=== PATIENT | male | born 1955 | race Caucasian/White ===

== ENCOUNTER 2017-01-14 17:23 | Emergency (ER) | payer OTHER ==
[2017-01-14 19:05] LABS: ABSOLUTE BASOPHIL COUNT 0 /CUMM (0.0-0.2); ABSOLUTE EOSINOPHIL COUNT 0.3 /CUMM (0.0-0.7); ABSOLUTE GRANULOCYTE CT 5.1 /CUMM (1.4-6.5); ABSOLUTE LYMPH COUNT 1.3 /CUMM (1.2-3.4); ABSOLUTE MONOCYTE COUNT 0.5 /CUMM (0.10-0.60); BASOPHIL % 0.3 % (0.0-2.0); EOSINOPHIL % 4.6 % (0-5); GRANULOCYTE % 70.3 % (42.2-75.2); HEMATOCRIT 43.6 % (42-52); MEAN CORPUSCULAR HGB 30.5 PG (27.0-31.0); MEAN CORPUSCULAR HGB CONC 33.5 G/DL (33.0-37.0); MEAN CORPUSCULAR VOLUME 91.2 FL (80.0-94.0); MEAN PLATELET VOLUME 7.1 FL (7.4-10.4); PLATELET COUNT 234 /CUMM (130-400); RBC DISTRIBUTION WIDTH 12.8 % (11.5-14.5); RED BLOOD CELL CT 4.78 /CUMM (4.70-6.10); WHITE BLOOD CELL COUNT 7.2 /CUMM (4.8-10.8)
[2017-01-14] MEDS ORDERED: CENTRUM SILVER1 EAC4 PO (19:12)
[2017-01-14] MEDS ORDERED: LISINOPRIL-HCT1 EACH PO (19:12)
[2017-01-14] MEDS ORDERED: VITAMIN C1000 M2 PO (19:13)
[2017-01-14] MEDS ORDERED: ASPIRIN325 M2 PO (19:13)
[2017-01-14 19:16] LABS: PT 11.2 SEC (9.4-12.5); PTT 32 SEC (25-37)
[2017-01-14 19:35] VITALS: BP 131/64
--- NOTE | 2017-01-14 20:04 | ED UPPER/LOWER EXTREMITY COMPL ---
History of Present Illness General Chief Complaint: Lower Extremity Problems Stated Complaint: LEFT LEG PAINFULL AND SWOLLEN, 5 DAYS Source: patient, family Exam Limitations: no limitations Vital Signs & Intake/Output Vital Signs & Intake/Output Vital Signs Date Time Temp Pulse Resp B/P Pulse O2 O2 Flow FiO2 Ox Delivery Rate 01/14 1935 96.4 81 18 131/64 96 Room Air 01/14 1735 97.6 94 20 143/86 96 ED Intake and Output 01/15 0000 01/14 1200 Intake Total Output Total Balance Patient 271 lb Weight Allergies Coded Allergies: No Known Allergies (01/14/17) Reconcile Medications Ascorbic Acid (Vitamin C) 1,000 MG TAB.CHEW 1 TAB PO DAILY SUPPLEMENT ( Reported) Aspirin (Aspirin*) 325 MG TABLET 2 TAB PO ONCE HEADACHE (Reported) Lisinopril/Hydrochlorothiazide (Lisinopril-Hctz 20-12.5 MG Tab) 20 MG-12.5 MG TABLET 1 TAB PO DAILY BP (Reported) Multivit-Min/FA/Lycopen/Lutein (Centrum Silver Men Tablet) 300 MCG-600 MCG-300 MCG TABLET 1 TAB PO DAILY SUPPLEMENT (Reported) Triage Note: PER PT L LEG SIGNIFICANTLY MORE SWOLLEN THEN R. DENIES TRAUMA, NOTICED A LITTLE BIT ON MONDAY BUT TODAY MORE NOTICABLE, RECENT DX WITH NOHODGKINS LYMPHOMA, UNABLE TO EVAL IN TRIAGE Triage Nurses Notes Reviewed? yes Onset: Abrupt Duration: day(s): (3), constant Timing: recent history Severity: moderate, severe No Modifying Factors: none HPI: 61-year-old male comes into emergency room for further evaluation of left leg pain and swelling has been going on since the past 3 days. Patient reports back in October he was diagnosed with non-Hodgkin's lymphoma. Patient reports some swelling and pain to the left lower leg. Denies any chest pain or shortness of breath. Denies any trauma to the area. Denies any fever chills or flulike symptoms. Patient reports that nothing seems to make the symptoms better or worse. Denies any prior history of this before. Denies any prior history of blood clots before. (DANO BARBER) Past History Travel History Traveled to [place] past 21 day No Medical History Any Pertinent Medical History? see below for history Neurological: NONE EENT: NONE Cardiovascular: hypertension Respiratory: NONE Gastrointestinal: NONE Hepatic: NONE Renal: NONE Musculoskeletal: NONE Psychiatric: NONE Endocrine: NONE Cancer(s): NOHODGKINS LYMPHOMA Surgical History Surgical History: non-contributory Psychosocial History What is your primary language Upper Sorbian Tobacco Use: Current Daily Use Daily Tobacco Use Amount/Type: => 5 Cigarettes daily Family History Hx Contributory? No (DANO BARBER) Review of Systems Review of Systems Constitutional: Reports: no symptoms. EENTM: Reports: no symptoms. Respiratory: Reports: no symptoms. Cardiovascular: Reports: no symptoms. Gastrointestinal/Abdominal: Reports: no symptoms. Genitourinary: Reports: no symptoms. Musculoskeletal: Reports: see HPI. Skin: Reports: see HPI. Neurological/Psychological: Reports: no symptoms. Hematologic/Endocrine: Reports: no symptoms. Immunological: Reports: no symptoms. All Other Systems: Reviewed and Negative (DANO BARBER) Physical Exam Physical Exam General Appearance: well developed/nourished, mild distress Head: atraumatic Eyes: Bilateral: normal appearance. Ears, Nose, Throat: normal ENT inspection, hearing grossly normal Neck: normal inspection Cardiovascular/Respiratory: regular rate/rhythm, no respiratory distress Back: normal inspection Leg Left: swelling, tenderness, mild warmth, no demarcated borders, some mild erythema to the leg (,) Neurologic/Tendon: normal sensation, normal motor functions, normal tendon functions, responds to pain, no evidence tendon injury, no pulse deficit Skin: intact, normal color, warm/dry Lymphatic: no anterior cervical ellen (DANO BARBER) Progress Differential Diagnosis: arterial insufficiency, cellulitis, CHF, compartment syndrome, contusion, dislocation, DVT, septic arthritis, sprain Plan of Care: Orders Procedure Date/time Status PARTIAL THROMBOPLASTIN TIME 01/15 1828 Complete PROTHROMBIN TIME 01/15 1828 Complete CBC WITHOUT DIFFERENTIAL 01/15 1828 Complete BASIC METABOLIC PANEL 01/15 1828 Complete Laboratory Tests 01/14/171857: Anion Gap 10, Estimated GFR > 60, BUN/Creatinine Ratio 26.7 H, Glucose 84, Calcium 9.7, PT 11.2, INR 1.07, APTT 32, CBC w Diff NO MAN DIFF REQ, RBC 4.78, MCV 91.2, MCH 30.5, RDW 12.8, MPV 7.1 L, Gran % 70.3, Lymphocytes % 17.7 L, Monocytes % 7.1, Eosinophils % 4.6, Basophils % 0.3, Absolute Granulocytes 5.1, Absolute Lymphocytes 1.3, Absolute Monocytes 0.5, Absolute Eosinophils 0.3, Absolute Basophils 0, PUBS MCHC 33.5 Comments: 01/14/2017 8:30:37 PM bedside ustrasound scan was performed of left lower extremity by mauricio STARK. There was no signs of dvt. This was not an official ultrasound read therefore it was determined that the patient will be anticoagulated tonight with one dose of Lovenox and return tomorrow for a dedicated ultrasound. Patient was told to return at 8 AM. Patient has no cardiac or pulmonary symptoms. Patient is not hypotensive or tachycardic. He has no chest pain or shortness of breath. Due to clinical signs of DVT patient was anticoagulated. Declined rectal exam. No prior history of internal bleeding. Patient understands that he must return tomorrow at 8 AM to have official ultrasound done. Patient agrees with plan of care. Case discussed with Dr. Aguilar. (CLARIBEL RAMIREZ,CASTAIC) Departure Departure Disposition: HOME OR SELF CARE Condition: Stable Clinical Impression Primary Impression: Left leg swelling Referrals: MAYKEL STARK,CHRISTINA Rae (PCP/Family) Additional Instructions: Please return tomorrow morning at 8 AM for ultrasound of her left lower leg to rule out DVT. Return sooner if any chest pain shortness of breath or any other concerns worsening symptoms. It is possible that there could be a blood clot in her leg and you must return tomorrow for official ultrasound. Please go over all results of today's visit with your primary care doctor. Contact your primary care doctor to let them know you were here in the emergency room. There may be nonspecific findings which may not be related to your visit today here in the emergency room but may require further evaluation and chronic monitoring by your primary care doctor. If you had a laceration today the chance of foreign body always remains. You should follow-up with your primary care doctor for recheck in 3-5 days for a wound check. If you had an x-ray done there is a chance that a fracture could have been missed on initial read and you should follow-up with your primary care doctor for repeat x-rays if symptoms persist. If your blood pressure was elevated here in the emergency room please have rechecked by her primary care doctor within the next 48 hours by your primary care doctor. If you were prescribed a narcotic here in the emergency room or any type of controlled substances you're not allowed to drive while taking this medication or operate any type of heavy machinery. Narcotics can make you feel lightheaded dizziness nausea and can cause constipation. You may need to pickle water pump operator a stool softener. Thank you for choosing [facility] emergency room. Please return to the emergency room immediately if you have any other concerns worsening of symptoms. Departure Forms: Customer Survey General Discharge Information (DANO BARBER) PA/BANDER AND CELLOPHANER HELPER MACHINE Co-Sign Statement Statement: ED Attending supervision documentation- [] I saw and evaluated the patient. I have also reviewed all the pertinent lab results and diagnostic results. I agree with the findings and the plan of care as documented in the PA's/BANDER AND CELLOPHANER HELPER MACHINE's documentation. [x] I have reviewed the ED Record and agree with the PA's/BANDER AND CELLOPHANER HELPER MACHINE's documentation. [] Additions or exceptions (if any) to the PAs/BANDER AND CELLOPHANER HELPER MACHINE's note and plan are summarized below: [] (HUMAIRA STARK,VANESSA Bender)
== END 2017-01-14 20:27 ==
LOC: ERH 17:23
PROVIDERS: Physician Assistant Medical
DX: M79.89 Other specified soft tissue disorders (principal)
CPT/HCPCS: 96372; J1650

== ENCOUNTER 2017-01-15 07:55 | Emergency (ER) | payer OTHER ==
[~2017-01-15] VITALS: Ht 172.7 cm; Wt 122.9 kg
[~2017-01-15 07:55] MED LIST: ASPIRIN325 M2 PO; CENTRUM SILVER1 EAC4 PO; LISINOPRIL-HCT1 EACH PO; VITAMIN C1000 M2 PO
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
--- NOTE | 2017-01-15 09:51 | ULTRASOUND REPORT ---
EXAMINATION: US TRIPLEX LOWER EXTREMITY, LEFT CLINICAL INFORMATION: Left lower extremity swelling; history of lymphoma. COMPARISON: None. TECHNIQUE: Color-flow triplex imaging with spectral analysis and compression Doppler were performed on the left lower extremity. FINDINGS: Respiratory variation, normal compression and augmented flow are noted throughout the lower extremity. The visualized common femoral vein, proximal greater saphenous vein, femoral vein, profunda femoral vein, popliteal vein and visualized mid calf venous segments show no evidence of deep venous thrombosis. There is no Galvez's cyst. There are enlarged left inguinal lymph nodes with loss of corticomedullary differentiation, the largest measuring 3.6 x 2.6 x 4.4 cm and 4.6 x 2.8 x 4.6 cm. IMPRESSION: 1. Normal triplex scan without evidence of deep venous thrombosis involving the left lower extremity. 2. There are pathologically enlarged left inguinal lymph nodes, consistent with the history provided of lymphoma.
[2017-01-15 10:00] VITALS: BP 137/72
== END 2017-01-15 10:06 ==
LOC: ERH 07:55
DX: I89.0 Lymphedema, not elsewhere classified (principal); R59.9 Enlarged lymph nodes, unspecified